=== PATIENT | male | born 1955 | race Caucasian/White ===

== ENCOUNTER 2020-07-17 21:12 | Inpatient (IN) | payer MEDICARE, MEDICAID ==
[~2020-07-17] VITALS: Ht 177.8 cm; Wt 94.2 kg
[2020-07-17] MEDS ORDERED: IOHEXOL 350 MG/ML 100ML IJ ONE (21:43)
[2020-07-17 22:10] LABS: Basophils # (auto) 0 10 ^3/uL (0-0.2); Basophils % (auto) 0.2 % (0.0-2.0); Eosinophils # (auto) 0 10 ^3/uL (0-0.8); Eosinophils % (auto) 0.4 % (0.0-7.0); Hematocrit 21.2 % (41.0-53.0); Hemoglobin 7.2 g/dL (13.5-17.5); Lymphocytes # (auto) 0.8 10 ^3/uL (0.4-5.4); Lymphocytes % (auto) 17.8 % (10.0-50.0); Mean Corpuscular Hemoglobin 31.2 pg (28.0-32.0); Mean Corpuscular Hgb Conc. 33.8 g/dL (32.0-36.0); Mean Corpuscular Volume 92.3 fL (80.0-100.0); Monocytes # (auto) 0.4 10 ^3/uL (0-1.3); Neutrophils # (auto) 3.4 10 ^3/uL (1.6-8.6); Neutrophils % (auto) 72.6 % (37.0-80.0); Platelet Count (auto) 46 10^3/uL (140-450); Red Blood Cells 2.29 10^6/uL (4.5-5.90); White Blood Cell 4.7 10^3/uL (4.4-10.8)
[2020-07-17 22:11] LABS: Red Cell Distribution Width 26.3 % (11.8-14.3)
[2020-07-17 22:28] LABS: INR 1.05 (0.9-1.15); Partial Thromboplastin Time 22.8 sec (23.0-31.2)
[2020-07-17 22:34] LABS: Alanine Aminotransferase 25 U/L (16-61); Albumin 2.9 g/dL (3.4-5.0); Amylase 75 U/L (25-115); Anion Gap 12 (5-15); Aspartate Aminotransferase 80 U/L (15-37); Blood Urea Nitrogen 22 mg/dL (7-18); Calcium 8.1 mg/dL (8.5-10.1); Carbon Dioxide 24 mmol/L (21-32); Chloride 96 mmol/L (98-107); GFR African American 91 mL/min; GFR Non-African American 75 mL/min; Glucose 164 mg/dL (74-106); Lipase 382 U/L (73-393); Magnesium 1.8 mg/dL (1.6-2.6); Potassium 3.9 mmol/L (3.5-5.1); Sodium 132 mmol/L (136-145)
[2020-07-17 22:39] LABS: Alkaline Phosphatase 306 U/L (45-117); Bilirubin, Total 0.8 mg/dL (0.2-1.0); Total Protein 6.2 g/dL (6.4-8.2)
[2020-07-17 23:03] LABS: Urine Bacteria NONE SEEN /hpf (None Seen); Urine Blood Negative /uL (Negative); Urine Specific Gravity 1.011 (1.001-1.035); Urine WBC <1 /hpf (0 - 3)
[2020-07-18] VITALS (18 sets, daily range): BP systolic 147–189; BP diastolic 65–92
[2020-07-18] MEDS ORDERED: ONDANSETRON HCL 4 MG/2 ML VIAL IV PRN (04:15)
[2020-07-18] MEDS ORDERED: HYDROcodone-ACET 10/325MG TAB PO PRN (04:15)
[2020-07-18] MEDS ORDERED: MORPHINE SULFATE 4 MG/ML SYR/VIAL IV PRN (04:15)
[2020-07-18] MEDS ORDERED: TEMAZEPAM 15 MG CAP PO PRN (04:15)
[2020-07-18] MEDS ORDERED: DEXA2TAB PO (08:12)
[2020-07-18] MEDS ORDERED: METO-159 PO (08:12)
[2020-07-18] MEDS: FAMOTIDINE 20 MG TAB PO SCH ×2 (10:59→22:00)
[2020-07-18] MEDS: METOPROLOL SUCCINATE XL 50 MG TAB PO SCH (11:00)
[2020-07-18 19:43] LABS: Hemoglobin 9.3 g/dL (13.5-17.5)
[2020-07-18 19:46] LABS: Hematocrit 27.1 % (41.0-53.0)
[2020-07-19 05:00] VITALS: BP 142/83
[2020-07-19 07:46] LABS: Hematocrit 25.6 % (41.0-53.0); Hemoglobin 8.8 g/dL (13.5-17.5); Mean Corpuscular Hemoglobin 31.5 pg (28.0-32.0); Mean Corpuscular Hgb Conc. 34.4 g/dL (32.0-36.0); Mean Corpuscular Volume 91.5 fL (80.0-100.0); Platelet Count (auto) 41 10^3/uL (140-450); Red Blood Cells 2.79 10^6/uL (4.5-5.90); Red Cell Distribution Width 21.5 % (11.8-14.3)
[2020-07-19 07:49] LABS: Basophils % (manual) 0 (0.0-2.0); Blast Cells 0; Eosinophils % (manual) 0 (0-7); Myelocytes % 0; Promyelocytes % 0; Reactive Lymphocytes 0
[2020-07-19 07:52] LABS: Albumin 2.8 g/dL (3.4-5.0); Calcium 8.1 mg/dL (8.5-10.1); Potassium 4.2 mmol/L (3.5-5.1)
[2020-07-19 07:57] LABS: BUN/Creatinine Ratio 25.3; Bilirubin, Total 0.8 mg/dL (0.2-1.0)
[2020-07-19] MEDS: FAMOTIDINE 20 MG TAB PO SCH (08:11)
[2020-07-19] MEDS: METOPROLOL SUCCINATE XL 50 MG TAB PO SCH (08:12)
[2020-07-19 09:00] VITALS: BP 164/90
[2020-07-19 12:00] VITALS: BP 128/82
[2020-07-19 12:09] LABS: Band Neutrophils % (manual) 15; Lymphocytes % (manual) 13 (10.0-50.0); Metamyelocytes % 2; Monocytes % (manual) 16 (0-12)
[2020-07-19 12:37] VITALS: BP 128/82
== END 2020-07-19 13:15 | disposition home or self-care (01) | DRG 722 ==
LOC: ER 21:12 → EDBD 21:12 → OVERFLOW 07-18 04:12 → WEST WING 07-18 07:56
PROVIDERS: ADMIT Nurse Practitioner; ATTEND Family Medicine
PROC: 30230N1 Transfusion of Nonautologous Red Blood Cells into Peripheral Vein, Open Approach (ICD-10-PCS; principal; 2020-07-18)
PROC: 30233R1 Transfusion of Nonautologous Platelets into Peripheral Vein, Percutaneous Approach (ICD-10-PCS; 2020-07-18)
DX: C61 Malignant neoplasm of prostate (principal); D61.810 Antineoplastic chemotherapy induced pancytopenia; C79.51 Secondary malignant neoplasm of bone; E44.0 Moderate protein-calorie malnutrition; D69.6 Thrombocytopenia, unspecified; Z20.822 Contact with and (suspected) exposure to COVID-19; I25.10 Atherosclerotic heart disease of native coronary artery without angina pectoris; I11.9 Hypertensive heart disease without heart failure; I71.2 Thoracic aortic aneurysm, without rupture; D63.8 Anemia in other chronic diseases classified elsewhere; K76.89 Other specified diseases of liver; R16.1 Splenomegaly, not elsewhere classified; N26.1 Atrophy of kidney (terminal); E83.51 Hypocalcemia; Z88.0 Allergy status to penicillin; Z68.29 Body mass index [BMI] 29.0-29.9, adult; Z92.21 Personal history of antineoplastic chemotherapy; Z79.899 Other long term (current) drug therapy; Z80.1 Family history of malignant neoplasm of trachea, bronchus and lung
CPT/HCPCS: 36415; 71260; 74177; 80053; 81001; 82150; 83605; 83690; 83735; 84484; 85007; 85014; 85018; 85025; 85027; 85610; 85730; 86850; 86900; 86901; 86920; 87426; 93005; 99291; G0378

== ENCOUNTER 2020-08-26 14:27 | Inpatient (IN) | payer MEDICARE, MEDICAID ==
[~2020-08-26] VITALS: Ht 180.3 cm; Wt 97.4 kg
[2020-08-26] VITALS (13 sets, daily range): BP systolic 115–153; BP diastolic 57–75
[~2020-08-26 14:27] MED LIST: DEXA2TAB PO; METO-159 PO
[2020-08-26] MEDS ORDERED: SODIUM CHLORIDE 0.9% 500 ML IV ONE (14:45)
[2020-08-26 14:59] LABS: Mean Corpuscular Hemoglobin 34.6 pg (28.0-32.0); Red Blood Cells 1.74 10^6/uL (4.5-5.90); White Blood Cell 8.6 10^3/uL (4.4-10.8)
[2020-08-26 15:01] LABS: Hematocrit 17.1 % (41.0-53.0); Mean Corpuscular Hgb Conc. 35.1 g/dL (32.0-36.0); Mean Corpuscular Volume 98.5 fL (80.0-100.0)
[2020-08-26 15:04] LABS: Red Cell Distribution Width 23.2 % (11.8-14.3)
[2020-08-26 15:09] LABS: Albumin 2.6 g/dL (3.4-5.0); BUN/Creatinine Ratio 20.4; Calcium 8.4 mg/dL (8.5-10.1); Potassium 4.1 mmol/L (3.5-5.1)
[2020-08-26 15:10] LABS: Basophils % (manual) 0 (0.0-2.0); Blast Cells 0; Myelocytes % 0; Promyelocytes % 0; Reactive Lymphocytes 0
[2020-08-26 15:12] LABS: Bilirubin, Total 1.4 mg/dL (0.2-1.0); Total Protein 6.1 g/dL (6.4-8.2)
[2020-08-26 16:57] LABS: Band Neutrophils % (manual) 12; Eosinophils % (manual) 1 (0-7); Lymphocytes % (manual) 27 (10.0-50.0); Metamyelocytes % 2; Monocytes % (manual) 9 (0-12)
[2020-08-26] MEDS ORDERED: ONDANSETRON HCL 4 MG/2 ML VIAL IV PRN (19:00)
[2020-08-26] MEDS ORDERED: MORPHINE SULFATE INJECTION 2 MG/ML SYRG IV PRN ×2 (19:00)
[2020-08-26] MEDS ORDERED: FUROSEMIDE 20 MG/2 ML VIAL IV ONE (19:00)
[2020-08-26] MEDS ORDERED: HYDROcodone-ACET 5/325MG TAB PO PRN ×2 (19:00→19:15)
[2020-08-26] MEDS ORDERED: NITROGLYCERIN 0.4 MG SL TAB SL PRN (19:00)
[2020-08-26] MEDS ORDERED: ACETAMINOPHEN 500 MG TAB PO PRN ×2 (19:00→19:15)
[2020-08-26] MEDS ORDERED: ABIR250T PO (19:06)
[2020-08-27] VITALS (7 sets, daily range): BP systolic 143–172; BP diastolic 73–81
[2020-08-27 08:10] LABS: Hematocrit 23.1 % (41.0-53.0); Hemoglobin 8.1 g/dL (13.5-17.5); Mean Corpuscular Hemoglobin 32.4 pg (28.0-32.0); Mean Corpuscular Hgb Conc. 35.2 g/dL (32.0-36.0); Mean Corpuscular Volume 92.1 fL (80.0-100.0); Red Blood Cells 2.51 10^6/uL (4.5-5.90); White Blood Cell 7.3 10^3/uL (4.4-10.8)
[2020-08-27 08:22] LABS: Red Cell Distribution Width 21.5 % (11.8-14.3)
[2020-08-27 08:24] LABS: Basophils % (manual) 0 (0.0-2.0); Blast Cells 0; Eosinophils % (manual) 0 (0-7); Promyelocytes % 0; Reactive Lymphocytes 0
[2020-08-27] MEDS ORDERED: hydrALAZINE HCL 20 MG/ML VL IV PRN (08:30)
[2020-08-27] MEDS ORDERED: ABIR250T2 PO (09:00)
[2020-08-27] MEDS: METOPROLOL SUCCINATE XL 50 MG TAB PO SCH ×2 (09:12→11:37)
[2020-08-27 09:49] LABS: Band Neutrophils % (manual) 23; Lymphocytes % (manual) 23 (10.0-50.0); Metamyelocytes % 2; Monocytes % (manual) 7 (0-12); Myelocytes % 9
[2020-08-27] MEDS ORDERED: ABIRATERONE ACETATE 1000 MG PO ONE (11:00)
[2020-08-27] MEDS ORDERED: ABIRATERONE ACETATE 1000 MG PO SCH ×2 (11:19→11:21)
[2020-08-27] MEDS: ABIRATERONE ACETATE 500 MG PO SCH (11:37)
[2020-08-27] MEDS ORDERED: DexAMETHasone 4 MG TAB PO ONE (11:45)
[2020-08-27] MEDS ORDERED: METOPROLOL TARTRATE 50 MG TAB PO ONE (11:45)
[2020-08-27] MEDS ORDERED: METOPROLOL SUCCINATE XL 50 MG TAB PO ONE (12:00)
[2020-08-28] MEDS ORDERED: ABIRATERONE ACETATE 1000 MG PO SCH (06:00)
[2020-08-28 06:02] LABS: Mean Corpuscular Volume 92.7 fL (80.0-100.0)
[2020-08-28 06:04] LABS: Hematocrit 21.2 % (41.0-53.0); Hemoglobin 7.6 g/dL (13.5-17.5); Mean Corpuscular Hgb Conc. 35.6 g/dL (32.0-36.0); Red Blood Cells 2.29 10^6/uL (4.5-5.90); White Blood Cell 6.4 10^3/uL (4.4-10.8)
[2020-08-28] MEDS: ABIRATERONE ACETATE 500 MG PO SCH (06:30)
[2020-08-28 06:31] LABS: Basophils % (manual) 0 (0.0-2.0); Blast Cells 0; Metamyelocytes % 0; Promyelocytes % 0; Reactive Lymphocytes 0; Red Cell Distribution Width 21.4 % (11.8-14.3)
[2020-08-28 08:10] LABS: Band Neutrophils % (manual) 18; Eosinophils % (manual) 3 (0-7); Lymphocytes % (manual) 33 (10.0-50.0); Monocytes % (manual) 5 (0-12); Myelocytes % 8
[2020-08-28 09:00] VITALS: BP 156/79
[2020-08-28] MEDS ORDERED: METOPROLOL SUCCINATE XL 50 MG TAB PO SCH (10:00)
[2020-08-28] MEDS ORDERED: DexAMETHasone 4 MG TAB PO SCH (10:00)
[2020-08-28 13:00] VITALS: BP 147/81
[2020-08-28 14:23] VITALS: BP 156/79
== END 2020-08-28 16:00 | disposition home or self-care (01) | DRG 812 ==
LOC: EDBD 14:27 → ER 14:27 → TELE 18:50 → TELE-CENTR 08-27 08:35
PROVIDERS: ADMIT Nurse Practitioner Acute Care; ATTEND Family Medicine
PROC: 30233N1 Transfusion of Nonautologous Red Blood Cells into Peripheral Vein, Percutaneous Approach (ICD-10-PCS; principal; 2020-08-26)
PROC: 30233R1 Transfusion of Nonautologous Platelets into Peripheral Vein, Percutaneous Approach (ICD-10-PCS; 2020-08-27)
DX: D64.81 Anemia due to antineoplastic chemotherapy (principal); C79.51 Secondary malignant neoplasm of bone; D69.6 Thrombocytopenia, unspecified; C61 Malignant neoplasm of prostate; I10 Essential (primary) hypertension; M54.9 Dorsalgia, unspecified; R53.81 Other malaise; Z20.822 Contact with and (suspected) exposure to COVID-19; Z79.899 Other long term (current) drug therapy; Z85.46 Personal history of malignant neoplasm of prostate; Z92.21 Personal history of antineoplastic chemotherapy; Z92.3 Personal history of irradiation; Z88.0 Allergy status to penicillin; Z80.9 Family history of malignant neoplasm, unspecified
CPT/HCPCS: 36415; 36430; 80053; 85007; 85027; 86850; 86900; 86901; 86920; 87426; 93005; 96374; G0378

== ENCOUNTER 2020-08-30 18:52 | Inpatient (IN) | payer MEDICARE, MEDICAID ==
[~2020-08-30] VITALS: Ht 172.7 cm; Wt 97.3 kg
[~2020-08-30 18:52] MED LIST changes: +ABIR250T2 PO
[2020-08-30 21:42] LABS: Hematocrit 21.9 % (41.0-53.0); Hemoglobin 7.6 g/dL (13.5-17.5); Mean Corpuscular Hgb Conc. 34.7 g/dL (32.0-36.0); White Blood Cell 8.1 10^3/uL (4.4-10.8)
[2020-08-30 21:43] LABS: Mean Corpuscular Hemoglobin 32.4 pg (28.0-32.0); Mean Corpuscular Volume 93.3 fL (80.0-100.0); Red Blood Cells 2.34 10^6/uL (4.5-5.90)
[2020-08-30 21:45] LABS: Red Cell Distribution Width 21.1 % (11.8-14.3)
[2020-08-30 21:47] LABS: Basophils % (manual) 0 (0.0-2.0); Blast Cells 0; Eosinophils % (manual) 0 (0-7); Metamyelocytes % 0; Promyelocytes % 0; Reactive Lymphocytes 0
[2020-08-30 22:00] LABS: Calcium 8.4 mg/dL (8.5-10.1); Potassium 4.2 mmol/L (3.5-5.1)
[2020-08-30 22:04] LABS: BUN/Creatinine Ratio 24.3; Bilirubin, Total 1.6 mg/dL (0.2-1.0); Total Protein 6.3 g/dL (6.4-8.2)
[2020-08-30 22:53] LABS: Band Neutrophils % (manual) 27; Lymphocytes % (manual) 23 (10.0-50.0); Monocytes % (manual) 6 (0-12); Myelocytes % 11
[2020-08-31] MEDS ORDERED: MORPHINE SULFATE 4 MG/ML SYR/VIAL IV PRN ×2 (02:30→03:45)
[2020-08-31] MEDS ORDERED: ONDANSETRON HCL 4 MG/2 ML VIAL IV PRN (03:45)
[2020-08-31] MEDS ORDERED: DEXTROSE (50%) 50ML SYRG IV PRN (03:45)
[2020-08-31] MEDS ORDERED: NITROGLYCERIN 0.4 MG SL TAB SL PRN (03:45)
[2020-08-31] MEDS ORDERED: HYDROcodone-ACET 5/325MG TAB PO PRN (03:45)
[2020-08-31] MEDS ORDERED: MORPHINE SULFATE INJECTION 2 MG/ML SYRG IV PRN (03:45)
[2020-08-31] MEDS ORDERED: DOCUSATE SOD 100 MG CAP PO PRN (03:45)
[2020-08-31] MEDS: SODIUM CHLORIDE 0.9% 1,000 ML IV SCH ×2 (05:07→20:25)
[2020-08-31 06:31] LABS: Urine Bacteria NONE SEEN /hpf (None Seen); Urine Blood Negative /uL (Negative); Urine Specific Gravity 1.015 (1.001-1.035); Urine WBC 1 /hpf (0 - 3)
[2020-08-31] MEDS: InsuLIN REG 1unit/0.01ml Soln (100units/ml) SC SCH ×2 (07:00→11:30)
[2020-08-31 07:06] LABS: Hematocrit 22.7 % (41.0-53.0); Mean Corpuscular Hgb Conc. 35.4 g/dL (32.0-36.0); Mean Corpuscular Volume 93.3 fL (80.0-100.0); Red Blood Cells 2.43 10^6/uL (4.5-5.90); Red Cell Distribution Width 21.8 % (11.8-14.3); White Blood Cell 6.8 10^3/uL (4.4-10.8)
[2020-08-31 07:08] LABS: Basophils % (manual) 0 (0.0-2.0); Blast Cells 0; Promyelocytes % 0; Reactive Lymphocytes 0
[2020-08-31 07:09] LABS: Calcium 8.1 mg/dL (8.5-10.1); Potassium 3.8 mmol/L (3.5-5.1)
[2020-08-31 07:11] LABS: Albumin 2.8 g/dL (3.4-5.0); BUN/Creatinine Ratio 25.8
[2020-08-31 07:21] LABS: Bilirubin, Total 1.5 mg/dL (0.2-1.0); Total Protein 6.2 g/dL (6.4-8.2)
[2020-08-31 07:24] LABS: INR 1.05 (0.9-1.15); Partial Thromboplastin Time 24.4 sec (23.0-31.2)
[2020-08-31] MEDS: ACCU-CHEK COMFORT CURVE STRIP VI SCH ×2 (07:27→11:41)
[2020-08-31 08:29] LABS: Band Neutrophils % (manual) 5; Eosinophils % (manual) 1 (0-7); Lymphocytes % (manual) 31 (10.0-50.0); Metamyelocytes % 1; Monocytes % (manual) 13 (0-12); Myelocytes % 2
[2020-08-31 08:37] VITALS: BP 170/71
[2020-08-31 08:52] VITALS: BP 146/75
[2020-08-31] MEDS: ZINC SULFATE 220mg CAP or TAB PO SCH (09:41)
[2020-08-31] MEDS: MULTIPLE VITAMIN TAB PO SCH (09:42)
[2020-08-31] MEDS: FAMOTIDINE 20 MG TAB PO SCH ×2 (09:42→20:35)
[2020-08-31] MEDS: ASCORBIC ACID 500 MG TAB PO SCH ×2 (09:42→20:35)
[2020-08-31] MEDS ORDERED: HEPARIN SODIUM (PORCINE) 5000 UNITS/ML 1ML VIAL SC SCH (10:00)
[2020-08-31 10:25] VITALS: BP 160/71
[2020-08-31] MEDS: ACETAMINOPHEN 325 MG TAB PO PRN (17:43)
[2020-08-31 17:53] VITALS: BP 132/73
[2020-08-31] MEDS ORDERED: METOPROLOL TARTRATE 50 MG TAB PO ONE (21:00)
[2020-08-31 22:00] VITALS: BP 124/98
[2020-08-31] MEDS ORDERED: InsuLIN REG 1unit/0.01ml Soln (100units/ml) SC SCH (22:00)
[2020-09-01 05:00] VITALS: BP 119/60
[2020-09-01 08:20] VITALS: BP 129/70
[2020-09-01 08:30] LABS: Hematocrit 20.8 % (41.0-53.0); Hemoglobin 7.2 g/dL (13.5-17.5); Red Blood Cells 2.25 10^6/uL (4.5-5.90)
[2020-09-01 08:32] LABS: Mean Corpuscular Hgb Conc. 34.7 g/dL (32.0-36.0); Mean Corpuscular Volume 92.3 fL (80.0-100.0); White Blood Cell 4.9 10^3/uL (4.4-10.8)
[2020-09-01 08:46] LABS: Red Cell Distribution Width 21.1 % (11.8-14.3)
[2020-09-01 08:47] LABS: Basophils % (manual) 0 (0.0-2.0); Blast Cells 0; Eosinophils % (manual) 0 (0-7); Metamyelocytes % 0; Promyelocytes % 0; Reactive Lymphocytes 0
[2020-09-01 08:55] LABS: Potassium 3.5 mmol/L (3.5-5.1)
[2020-09-01 09:00] VITALS: BP 129/70
[2020-09-01 09:02] LABS: Albumin 2.5 g/dL (3.4-5.0); BUN/Creatinine Ratio 28.1; Bilirubin, Total 1.9 mg/dL (0.2-1.0); Calcium 8.2 mg/dL (8.5-10.1)
[2020-09-01 09:17] LABS: Band Neutrophils % (manual) 15; Lymphocytes % (manual) 39 (10.0-50.0); Monocytes % (manual) 6 (0-12); Myelocytes % 1
[2020-09-01] MEDS: ZINC SULFATE 220mg CAP or TAB PO SCH (09:29)
[2020-09-01] MEDS: FAMOTIDINE 20 MG TAB PO SCH ×2 (09:30→20:53)
[2020-09-01] MEDS: MULTIPLE VITAMIN TAB PO SCH (09:30)
[2020-09-01] MEDS: ASCORBIC ACID 500 MG TAB PO SCH ×2 (09:31→20:53)
[2020-09-01] MEDS: METOPROLOL TARTRATE 50 MG TAB PO SCH (09:31)
[2020-09-01] MEDS ORDERED: DexAMETHasone 4 MG TAB PO ONE ×2 (11:45→16:00)
[2020-09-01] MEDS ORDERED: PATIENTS OWN MEDICATION PO SCH (11:45)
[2020-09-01] MEDS: SODIUM CHLORIDE 0.9% 1,000 ML IV SCH (12:42)
[2020-09-01 13:00] VITALS: BP 131/70
[2020-09-01] MEDS ORDERED: ABIRATERONE ACETATE 500 MG PO ONE (16:30)
[2020-09-01 17:00] VITALS: BP 137/63
[2020-09-01 22:00] VITALS: BP 149/67
[2020-09-02] VITALS (12 sets, daily range): BP systolic 114–161; BP diastolic 58–92
[2020-09-02] MEDS: SODIUM CHLORIDE 0.9% 1,000 ML IV SCH ×2 (05:56→22:25)
[2020-09-02 07:13] LABS: Hematocrit 16.8 % (41.0-53.0); Mean Corpuscular Volume 90.4 fL (80.0-100.0); Red Blood Cells 1.86 10^6/uL (4.5-5.90); White Blood Cell 3.7 10^3/uL (4.4-10.8)
[2020-09-02 07:15] LABS: Mean Corpuscular Hemoglobin 32.4 pg (28.0-32.0); Mean Corpuscular Hgb Conc. 35.8 g/dL (32.0-36.0)
[2020-09-02 07:17] LABS: Red Cell Distribution Width 20.4 % (11.8-14.3)
[2020-09-02 07:35] LABS: Basophils % (manual) 0 (0.0-2.0); Blast Cells 0; Promyelocytes % 0; Reactive Lymphocytes 0
[2020-09-02 07:46] LABS: Band Neutrophils % (manual) 16; Eosinophils % (manual) 1 (0-7); Lymphocytes % (manual) 26 (10.0-50.0); Metamyelocytes % 1; Monocytes % (manual) 8 (0-12); Myelocytes % 3
[2020-09-02] MEDS ORDERED: ABIRATERONE ACETATE 500 MG PO SCH (10:00)
[2020-09-02] MEDS: ZINC SULFATE 220mg CAP or TAB PO SCH (10:03)
[2020-09-02] MEDS: ASCORBIC ACID 500 MG TAB PO SCH ×2 (10:03→20:38)
[2020-09-02] MEDS: MULTIPLE VITAMIN TAB PO SCH (10:03)
[2020-09-02] MEDS: FAMOTIDINE 20 MG TAB PO SCH ×2 (10:04→20:38)
[2020-09-02] MEDS: METOPROLOL TARTRATE 50 MG TAB PO SCH (10:04)
[2020-09-02] MEDS: DexAMETHasone 4 MG TAB PO SCH (10:05)
[2020-09-03 00:15] VITALS: BP 154/77
[2020-09-03] MEDS: ACETAMINOPHEN 325 MG TAB PO PRN (02:21)
[2020-09-03 06:57] LABS: Hematocrit 21.6 % (41.0-53.0); Hemoglobin 7.7 g/dL (13.5-17.5); White Blood Cell 4.9 10^3/uL (4.4-10.8)
[2020-09-03 06:59] LABS: Mean Corpuscular Hemoglobin 31.7 pg (28.0-32.0); Mean Corpuscular Hgb Conc. 35.6 g/dL (32.0-36.0); Mean Corpuscular Volume 88.9 fL (80.0-100.0); Red Blood Cells 2.43 10^6/uL (4.5-5.90); Red Cell Distribution Width 18.4 % (11.8-14.3)
[2020-09-03 07:01] LABS: Basophils % (manual) 0 (0.0-2.0); Blast Cells 0; Eosinophils % (manual) 0 (0-7); Myelocytes % 0; Promyelocytes % 0; Reactive Lymphocytes 0
[2020-09-03 08:30] VITALS: BP 144/65
[2020-09-03 09:06] LABS: Band Neutrophils % (manual) 14; Lymphocytes % (manual) 30 (10.0-50.0); Metamyelocytes % 1; Monocytes % (manual) 9 (0-12)
[2020-09-03] MEDS: ZINC SULFATE 220mg CAP or TAB PO SCH (09:25)
[2020-09-03] MEDS: DexAMETHasone 4 MG TAB PO SCH (09:26)
[2020-09-03] MEDS: METOPROLOL TARTRATE 50 MG TAB PO SCH (09:27)
[2020-09-03] MEDS: FAMOTIDINE 20 MG TAB PO SCH (09:27)
[2020-09-03] MEDS: MULTIPLE VITAMIN TAB PO SCH (09:27)
[2020-09-03] MEDS: ASCORBIC ACID 500 MG TAB PO SCH (09:27)
[2020-09-03] MEDS ORDERED: ABIRATERONE ACETATE 500 MG PO SCH (10:00)
[2020-09-03 12:53] VITALS: BP 142/62
[2020-09-03 13:55] VITALS: BP 142/62
[2020-09-03] MEDS: SODIUM CHLORIDE 0.9% 1,000 ML IV SCH (15:05)
== END 2020-09-03 16:21 | DRG 563 ==
LOC: ER 18:52 → TELE 08-31 03:56 → TELE-CENTR 08-31 16:36
PROVIDERS: ADMIT Nurse Practitioner Family; ATTEND Family Medicine
PROC: 30233R1 Transfusion of Nonautologous Platelets into Peripheral Vein, Percutaneous Approach (ICD-10-PCS; principal; 2020-08-31)
PROC: 30233N1 Transfusion of Nonautologous Red Blood Cells into Peripheral Vein, Percutaneous Approach (ICD-10-PCS; 2020-09-02)
DX: S42.331A Displaced oblique fracture of shaft of humerus, right arm, initial encounter for closed fracture (principal); D61.818 Other pancytopenia; I10 Essential (primary) hypertension; Z20.822 Contact with and (suspected) exposure to COVID-19; W18.39XA Other fall on same level, initial encounter; Z88.0 Allergy status to penicillin; Z85.46 Personal history of malignant neoplasm of prostate; Z92.21 Personal history of antineoplastic chemotherapy; Z92.3 Personal history of irradiation; Y93.89 Activity, other specified; Y92.89 Other specified places as the place of occurrence of the external cause; Y99.8 Other external cause status
CPT/HCPCS: 36415; 73030; 73080; 80053; 81001; 82962; 83036; 85007; 85027; 85610; 85730; 86850; 86900; 86901; 86920; 87426; G0378; J2405

== ENCOUNTER 2020-09-04 17:15 | Inpatient (IN) | payer MEDICARE, MEDICAID ==
[~2020-09-04] VITALS: Ht 180.3 cm; Wt 93.9 kg
[2020-09-04 17:46] LABS: Hemoglobin 8.6 g/dL (13.5-17.5)
[2020-09-04 17:48] LABS: Hematocrit 25.4 % (41.0-53.0); Mean Corpuscular Hemoglobin 30.9 pg (28.0-32.0); Mean Corpuscular Hgb Conc. 33.9 g/dL (32.0-36.0); Mean Corpuscular Volume 91.3 fL (80.0-100.0); Red Blood Cells 2.78 10^6/uL (4.5-5.90); Red Cell Distribution Width 18.2 % (11.8-14.3); White Blood Cell 15.2 10^3/uL (4.4-10.8)
[2020-09-04 18:04] LABS: Albumin 2.5 g/dL (3.4-5.0); Calcium 8.8 mg/dL (8.5-10.1); Potassium 4.8 mmol/L (3.5-5.1)
[2020-09-04 18:07] LABS: BUN/Creatinine Ratio 25.2; Bilirubin, Total 1.2 mg/dL (0.2-1.0); Total Protein 6.4 g/dL (6.4-8.2)
[2020-09-04 18:17] LABS: Basophils % (manual) 0 (0.0-2.0); Blast Cells 0; Promyelocytes % 0; Reactive Lymphocytes 0
[2020-09-04 18:56] LABS: Band Neutrophils % (manual) 10; Eosinophils % (manual) 1 (0-7); Lymphocytes % (manual) 13 (10.0-50.0); Metamyelocytes % 4; Monocytes % (manual) 9 (0-12); Myelocytes % 7
[2020-09-04] MEDS ORDERED: cloNIDine HCL 0.1 MG TAB PO ONE (21:15)
[2020-09-04] MEDS ORDERED: HYDROcodone-ACET 5/325MG TAB PO ONE (21:15)
[2020-09-04] MEDS ORDERED: SODIUM CHLORIDE 0.9% 1,000 ML IV SCH (22:15)
[2020-09-04] MEDS ORDERED: MORPHINE SULFATE INJECTION 2 MG/ML SYRG IV PRN (22:15)
[2020-09-04] MEDS ORDERED: ACETAMINOPHEN 325 MG TAB PO PRN (22:15)
[2020-09-04] MEDS ORDERED: NITROGLYCERIN 0.4 MG SL TAB SL PRN (22:15)
[2020-09-04] MEDS ORDERED: ONDANSETRON HCL 4 MG/2 ML VIAL IV PRN (22:15)
[2020-09-04] MEDS ORDERED: DOCUSATE SOD 100 MG CAP PO PRN (22:15)
[2020-09-04] MEDS ORDERED: HYDROcodone-ACET 5/325MG TAB PO PRN (22:15)
[2020-09-04] MEDS ORDERED: hydrALAZINE HCL 20 MG/ML VL IV PRN (22:15)
[2020-09-05] VITALS (8 sets, daily range): BP systolic 147–164; BP diastolic 76–96
[2020-09-05] MEDS ORDERED: MORPHINE SULFATE INJECTION 2 MG/ML SYRG IV PRN (00:15)
[2020-09-05] MEDS ORDERED: NITROGLYCERIN 0.4 MG SL TAB SL PRN (00:15)
[2020-09-05] MEDS ORDERED: ONDANSETRON HCL 4 MG/2 ML VIAL IV PRN (00:15)
[2020-09-05] MEDS ORDERED: ACETAMINOPHEN 325 MG TAB PO PRN (00:15)
[2020-09-05] MEDS ORDERED: HYDROcodone-ACET 5/325MG TAB PO PRN (00:15)
[2020-09-05] MEDS ORDERED: SODIUM CHLORIDE 0.9% 1,000 ML IV SCH (00:15)
[2020-09-05] MEDS ORDERED: DOCUSATE SOD 100 MG CAP PO PRN (00:15)
[2020-09-05] MEDS: hydrALAZINE HCL 20 MG/ML VL IV PRN ×2 (00:30→12:57)
[2020-09-05] MEDS: amLODIPine BESYLATE 5 MG TAB PO SCH ×2 (05:56→09:49)
[2020-09-05] MEDS ORDERED: FAMOTIDINE 20 MG TAB PO SCH ×2 (10:00)
[2020-09-05] MEDS ORDERED: ZINC SULFATE 220mg CAP or TAB PO SCH ×2 (10:00)
[2020-09-05] MEDS ORDERED: MULTIPLE VITAMIN TAB PO SCH ×2 (10:00)
[2020-09-05] MEDS ORDERED: LISINOPRIL 20 MG TAB PO SCH (10:00)
[2020-09-05] MEDS ORDERED: METOPROLOL TARTRATE 25 MG TAB PO SCH ×2 (10:00)
[2020-09-05] MEDS ORDERED: ASCORBIC ACID 500 MG TAB PO SCH ×2 (10:00)
[2020-09-05 10:27] LABS: Hematocrit 25.1 % (41.0-53.0); Hemoglobin 8.8 g/dL (13.5-17.5); Mean Corpuscular Hemoglobin 31.3 pg (28.0-32.0); Mean Corpuscular Volume 89.5 fL (80.0-100.0); Red Cell Distribution Width 18.5 % (11.8-14.3); White Blood Cell 9.8 10^3/uL (4.4-10.8)
[2020-09-05 10:34] LABS: Basophils % (manual) 0 (0.0-2.0); Blast Cells 0; Eosinophils % (manual) 0 (0-7); Promyelocytes % 0; Reactive Lymphocytes 0
[2020-09-05 11:42] LABS: Band Neutrophils % (manual) 14; Lymphocytes % (manual) 17 (10.0-50.0); Metamyelocytes % 11; Monocytes % (manual) 6 (0-12); Myelocytes % 10
== END 2020-09-05 21:56 | DRG 723 ==
LOC: ER 17:15 → EDBD 17:15 → TELE-CENTR 22:26 → ER 23:15
PROVIDERS: ADMIT Nurse Practitioner Family; ATTEND Internal Medicine
PROC: 30233R1 Transfusion of Nonautologous Platelets into Peripheral Vein, Percutaneous Approach (ICD-10-PCS; principal; 2020-09-05)
DX: C61 Malignant neoplasm of prostate (principal); E87.1 Hypo-osmolality and hyponatremia; D61.818 Other pancytopenia; E88.09 Other disorders of plasma-protein metabolism, not elsewhere classified; S42.301D Unspecified fracture of shaft of humerus, right arm, subsequent encounter for fracture with routine healing; D72.829 Elevated white blood cell count, unspecified; D63.8 Anemia in other chronic diseases classified elsewhere; R73.9 Hyperglycemia, unspecified; I10 Essential (primary) hypertension; Z85.46 Personal history of malignant neoplasm of prostate; Z88.0 Allergy status to penicillin; X58.XXXD Exposure to other specified factors, subsequent encounter; Z20.822 Contact with and (suspected) exposure to COVID-19
CPT/HCPCS: 36415; 70450; 73030; 73130; 80053; 85007; 85027; 85049; 86850; 86900; 86901; 87040; 87426; 93971; 96360; G0378

== ENCOUNTER 2020-09-10 07:58 | Inpatient (IN) | payer MEDICARE, MEDICAID ==
[2020-09-10] VITALS (8 sets, daily range): BP systolic 150–187; BP diastolic 60–73
[~2020-09-10] VITALS: Ht 177.8 cm; Wt 100.6 kg
[2020-09-10] MEDS ORDERED: SODIUM CHLORIDE 0.9% 1,000 ML IV ONE (09:30)
[2020-09-10] MEDS ORDERED: METOCLOPRAMIDE HCL 5MG/ml INJ 2ml VIAL IV ONE (09:30)
[2020-09-10] MEDS ORDERED: MORPHINE SULFATE 4 MG/ML SYR/VIAL IV ONE (09:30)
[2020-09-10 10:00] LABS: Hematocrit 19.4 % (41.0-53.0); Mean Corpuscular Hemoglobin 32.1 pg (28.0-32.0); Mean Corpuscular Hgb Conc. 35.7 g/dL (32.0-36.0); Mean Corpuscular Volume 89.8 fL (80.0-100.0); Red Blood Cells 2.16 10^6/uL (4.5-5.90); Red Cell Distribution Width 19.2 % (11.8-14.3); White Blood Cell 13.6 10^3/uL (4.4-10.8)
[2020-09-10 10:07] LABS: Hemoglobin 6.9 g/dL (13.5-17.5)
[2020-09-10 10:09] LABS: Basophils % (manual) 0 (0.0-2.0); Blast Cells 0; Eosinophils % (manual) 0 (0-7); Reactive Lymphocytes 0
[2020-09-10 10:15] LABS: Albumin 2.1 g/dL (3.4-5.0); Calcium 8.3 mg/dL (8.5-10.1); Potassium 3.7 mmol/L (3.5-5.1)
[2020-09-10 10:19] LABS: BUN/Creatinine Ratio 30.2; Bilirubin, Total 1.1 mg/dL (0.2-1.0); Total Protein 5.8 g/dL (6.4-8.2)
[2020-09-10 10:27] LABS: Magnesium 1.9 mg/dL (1.6-2.6)
[2020-09-10 10:36] LABS: INR 1.09 (0.9-1.15); Partial Thromboplastin Time 22.9 sec (23.0-31.2)
[2020-09-10 11:37] LABS: Band Neutrophils % (manual) 4; Lymphocytes % (manual) 20 (10.0-50.0); Metamyelocytes % 7; Monocytes % (manual) 7 (0-12); Myelocytes % 1; Promyelocytes % 1
[2020-09-10 14:07] LABS: Urine WBC None Seen /hpf (0 - 3)
[2020-09-10 14:22] LABS: Urine Bacteria NONE SEEN /hpf (None Seen); Urine Blood Negative /uL (Negative); Urine Specific Gravity 1.008 (1.001-1.035)
[2020-09-10] MEDS ORDERED: MORPHINE SULF INJ 2 MG/ML SYRINGE 1ML IV PRN (15:00)
[2020-09-10] MEDS ORDERED: NITROGLYCERIN 0.4 MG SL TAB SL PRN (15:00)
[2020-09-10] MEDS ORDERED: SODIUM CHLORIDE 0.9% 1,000 ML IV SCH (15:00)
[2020-09-10 15:54] LABS: Folate (Folic Acid) 11.36 ng/mL (5.38-24)
[2020-09-10] MEDS: levoFLOXacin 500MG 100 ML IV ONE ×2 (15:57→18:57)
[2020-09-10] MEDS ORDERED: ACET-1156 PO (18:27)
[2020-09-10] MEDS: ACETAMINOPHEN 325 MG TAB PO PRN (22:09)
[2020-09-11] VITALS (8 sets, daily range): BP systolic 119–151; BP diastolic 64–83
[2020-09-11] MEDS: levoFLOXacin 500MG 100 ML IV SCH (09:57)
[2020-09-11] MEDS: METOPROLOL TARTRATE 50 MG TAB PO SCH (09:57)
[2020-09-11] MEDS ORDERED: ABIRATERONE ACETATE 1000 MG PO SCH (10:00)
[2020-09-11] MEDS ORDERED: ABIRATERONE ACETATE 250 MG PO SCH (10:00)
[2020-09-11] MEDS: ABIRATERONE ACETATE 500 MG PO SCH (10:53)
[2020-09-11 11:16] LABS: Hemoglobin 9.7 g/dL (13.5-17.5); Mean Corpuscular Hemoglobin 31.8 pg (28.0-32.0); Mean Corpuscular Hgb Conc. 36.1 g/dL (32.0-36.0); Mean Corpuscular Volume 88.1 fL (80.0-100.0); Red Blood Cells 3.04 10^6/uL (4.5-5.90); White Blood Cell 10.5 10^3/uL (4.4-10.8)
[2020-09-11 11:19] LABS: Hematocrit 26.7 % (41.0-53.0); Red Cell Distribution Width 17.3 % (11.8-14.3)
[2020-09-11 11:48] LABS: Basophils % (manual) 0 (0.0-2.0); Blast Cells 0; Eosinophils % (manual) 0 (0-7); Promyelocytes % 0; Reactive Lymphocytes 0
[2020-09-11] MEDS ORDERED: DexAMETHasone 4 MG TAB PO ONE (12:15)
[2020-09-11 13:01] LABS: Band Neutrophils % (manual) 10; Lymphocytes % (manual) 23 (10.0-50.0); Metamyelocytes % 3; Monocytes % (manual) 10 (0-12); Myelocytes % 1
[2020-09-12] VITALS (9 sets, daily range): BP systolic 133–169; BP diastolic 66–77
[2020-09-12 07:49] LABS: Hematocrit 25.5 % (41.0-53.0); Hemoglobin 9.1 g/dL (13.5-17.5); Mean Corpuscular Hemoglobin 31.6 pg (28.0-32.0); Mean Corpuscular Hgb Conc. 35.6 g/dL (32.0-36.0); Mean Corpuscular Volume 88.9 fL (80.0-100.0); Red Blood Cells 2.87 10^6/uL (4.5-5.90); Red Cell Distribution Width 17.8 % (11.8-14.3); White Blood Cell 7.6 10^3/uL (4.4-10.8)
[2020-09-12 07:51] LABS: Basophils % (manual) 0 (0.0-2.0); Blast Cells 0; Promyelocytes % 0; Reactive Lymphocytes 0
[2020-09-12 08:44] LABS: Band Neutrophils % (manual) 6; Eosinophils % (manual) 1 (0-7); Lymphocytes % (manual) 11 (10.0-50.0); Metamyelocytes % 2; Monocytes % (manual) 10 (0-12); Myelocytes % 2
[2020-09-12] MEDS ORDERED: DexAMETHasone 4 MG TAB PO SCH (10:00)
[2020-09-12] MEDS: levoFLOXacin 500MG 100 ML IV SCH (11:29)
[2020-09-12] MEDS: ABIRATERONE ACETATE 500 MG PO SCH (11:30)
[2020-09-12] MEDS: METOPROLOL TARTRATE 50 MG TAB PO SCH (11:31)
[2020-09-12] MEDS ORDERED: PANTOPRAZOLE 40 MG/10 ML VIAL INJ IV ONE (12:45)
[2020-09-12] MEDS: methylPREDNISolone SOD SUCC 40 MG/ML VL IV SCH ×2 (13:51→23:15)
[2020-09-12] MEDS: PANTOPRAZOLE 40 MG TAB PO SCH (23:14)
[2020-09-12] MEDS: ACETAMINOPHEN 325 MG TAB PO PRN (23:21)
[2020-09-13 05:00] VITALS: BP 159/83
[2020-09-13] MEDS: methylPREDNISolone SOD SUCC 40 MG/ML VL IV SCH ×3 (06:22→14:22)
[2020-09-13 07:13] LABS: Mean Corpuscular Volume 88.3 fL (80.0-100.0)
[2020-09-13 07:14] LABS: Hematocrit 23.9 % (41.0-53.0); Hemoglobin 8.4 g/dL (13.5-17.5); Mean Corpuscular Hgb Conc. 35.2 g/dL (32.0-36.0); Red Blood Cells 2.71 10^6/uL (4.5-5.90); White Blood Cell 9.3 10^3/uL (4.4-10.8)
[2020-09-13 07:17] LABS: Basophils % (manual) 0 (0.0-2.0); Blast Cells 0; Eosinophils % (manual) 0 (0-7); Promyelocytes % 0; Reactive Lymphocytes 0
[2020-09-13 07:36] LABS: Band Neutrophils % (manual) 12; Lymphocytes % (manual) 11 (10.0-50.0); Metamyelocytes % 5; Monocytes % (manual) 1 (0-12); Myelocytes % 9
[2020-09-13 08:00] VITALS: BP 165/84
[2020-09-13] MEDS: levoFLOXacin 500MG 100 ML IV SCH (09:33)
[2020-09-13] MEDS: METOPROLOL TARTRATE 50 MG TAB PO SCH (09:34)
[2020-09-13] MEDS: ABIRATERONE ACETATE 500 MG PO SCH (09:34)
[2020-09-13] MEDS: PANTOPRAZOLE 40 MG TAB PO SCH ×2 (09:34→22:06)
[2020-09-13] MEDS ORDERED: PANTOPRAZOLE 40 MG TAB PO SCH (10:00)
[2020-09-13 12:00] VITALS: BP 160/77
[2020-09-13] MEDS: ACETAMINOPHEN 325 MG TAB PO PRN (12:27)
[2020-09-13] MEDS: hydrALAZINE HCL 20 MG/ML VL IV PRN (12:49)
[2020-09-13] MEDS ORDERED: DexAMETHasone 4 MG TAB PO ONE (15:45)
[2020-09-13 16:00] VITALS: BP 165/76
[2020-09-13 22:00] VITALS: BP 155/77
[2020-09-14 05:00] VITALS: BP 169/85
[2020-09-14] MEDS: hydrALAZINE HCL 20 MG/ML VL IV PRN (05:45)
[2020-09-14 06:08] LABS: Hemoglobin 8.8 g/dL (13.5-17.5); Red Cell Distribution Width 17.9 % (11.8-14.3)
[2020-09-14 06:10] LABS: Hematocrit 25.3 % (41.0-53.0); Mean Corpuscular Hemoglobin 31.1 pg (28.0-32.0); Mean Corpuscular Hgb Conc. 34.9 g/dL (32.0-36.0); Red Blood Cells 2.84 10^6/uL (4.5-5.90); White Blood Cell 12.5 10^3/uL (4.4-10.8)
[2020-09-14 06:12] LABS: Basophils % (manual) 0 (0.0-2.0); Blast Cells 0; Eosinophils % (manual) 0 (0-7); Promyelocytes % 0; Reactive Lymphocytes 0
[2020-09-14 06:14] LABS: % Iron Saturation 95.1 % (20-55); Calcium 8.5 mg/dL (8.5-10.1); Potassium 4.5 mmol/L (3.5-5.1)
[2020-09-14 06:22] LABS: BUN/Creatinine Ratio 37.9; CRP High Sensitivity 4.16 mg/dL (< 0.3); Pre Albumin 14.1 mg/dL (20.0-40.0)
[2020-09-14 06:28] LABS: Thyroid Stimulating Hormone 3.06 uIU/mL (0.358-3.74)
[2020-09-14 06:30] LABS: Band Neutrophils % (manual) 9; Lymphocytes % (manual) 16 (10.0-50.0); Metamyelocytes % 5; Monocytes % (manual) 3 (0-12); Myelocytes % 2
[2020-09-14 08:00] VITALS: BP 162/92
[2020-09-14] MEDS: DexAMETHasone 4 MG TAB PO SCH (08:17)
[2020-09-14 09:40] LABS: Ferritin > 1650.0 ng/mL (10-322)
[2020-09-14] MEDS: levoFLOXacin 500MG 100 ML IV SCH (09:41)
[2020-09-14] MEDS: ABIRATERONE ACETATE 500 MG PO SCH (09:41)
[2020-09-14] MEDS: METOPROLOL TARTRATE 50 MG TAB PO SCH ×2 (09:42→20:57)
[2020-09-14] MEDS: PANTOPRAZOLE 40 MG TAB PO SCH ×2 (09:42→20:57)
[2020-09-14 12:00] VITALS: BP 142/79
[2020-09-14] MEDS: hydrALAZINE HCL 25 MG TAB PO SCH ×2 (14:09→20:57)
[2020-09-14 16:00] VITALS: BP 146/77
[2020-09-14 22:00] VITALS: BP 147/85
[2020-09-15 05:00] VITALS: BP 140/81
[2020-09-15 05:31] LABS: Hematocrit 25.2 % (41.0-53.0); Hemoglobin 8.8 g/dL (13.5-17.5); Mean Corpuscular Hemoglobin 30.9 pg (28.0-32.0); Mean Corpuscular Hgb Conc. 34.8 g/dL (32.0-36.0); Red Blood Cells 2.83 10^6/uL (4.5-5.90); Red Cell Distribution Width 17.5 % (11.8-14.3); White Blood Cell 11.6 10^3/uL (4.4-10.8)
[2020-09-15 05:44] LABS: Basophils % (manual) 0 (0.0-2.0); Blast Cells 0; Eosinophils % (manual) 0 (0-7); Reactive Lymphocytes 0
[2020-09-15] MEDS: hydrALAZINE HCL 25 MG TAB PO SCH ×3 (05:55→22:00)
[2020-09-15 06:47] LABS: Band Neutrophils % (manual) 7; Lymphocytes % (manual) 21 (10.0-50.0); Metamyelocytes % 7; Monocytes % (manual) 6 (0-12); Myelocytes % 7; Promyelocytes % 1
[2020-09-15 08:00] VITALS: BP 149/79
[2020-09-15] MEDS: DexAMETHasone 4 MG TAB PO SCH (08:14)
[2020-09-15] MEDS: ABIRATERONE ACETATE 500 MG PO SCH (09:34)
[2020-09-15] MEDS: METOPROLOL TARTRATE 50 MG TAB PO SCH ×2 (09:34→22:00)
[2020-09-15] MEDS: levoFLOXacin 500MG 100 ML IV SCH (09:34)
[2020-09-15] MEDS: PANTOPRAZOLE 40 MG TAB PO SCH ×2 (09:34→22:10)
[2020-09-15] MEDS: ACETAMINOPHEN 325 MG TAB PO PRN ×3 (10:50→20:19)
[2020-09-15 12:00] VITALS: BP 144/95
[2020-09-15 12:57] LABS: Free T4 (Free Thyroxine) 0.62 ng/dL (0.89-1.76)
[2020-09-15 12:58] LABS: Folate (Folic Acid) 8.81 ng/mL (5.38-24)
[2020-09-15 16:00] VITALS: BP 157/75
[2020-09-15] MEDS: hydrALAZINE HCL 20 MG/ML VL IV PRN (17:05)
[2020-09-15 22:00] VITALS: BP 139/45
[2020-09-16] MEDS: ACETAMINOPHEN 325 MG TAB PO PRN (02:10)
[2020-09-16] MEDS ORDERED: EPINEPHrine HCL 1 MG/10 ML SYRG IV ONE (03:39)
== END 2020-09-16 03:40 | DRG 808 ==
LOC: ER 07:58 → EDBD 07:58 → TELE 15:00 → TELE-WESTW 17:29
PROVIDERS: ADMIT Nurse Practitioner Acute Care; ATTEND Internal Medicine
PROC: 30233N1 Transfusion of Nonautologous Red Blood Cells into Peripheral Vein, Percutaneous Approach (ICD-10-PCS; 2020-09-10)
PROC: 05HF33Z Insertion of Infusion Device into Left Cephalic Vein, Percutaneous Approach (ICD-10-PCS; 2020-09-10)
PROC: B54NZZA Ultrasonography of Left Upper Extremity Veins, Guidance (ICD-10-PCS; 2020-09-10)
PROC: 30233R1 Transfusion of Nonautologous Platelets into Peripheral Vein, Percutaneous Approach (ICD-10-PCS; principal; 2020-09-12)
DX: D61.810 Antineoplastic chemotherapy induced pancytopenia (principal); E43 Unspecified severe protein-calorie malnutrition; K92.2 Gastrointestinal hemorrhage, unspecified; C79.51 Secondary malignant neoplasm of bone; Z66 Do not resuscitate; C61 Malignant neoplasm of prostate; I10 Essential (primary) hypertension; D63.8 Anemia in other chronic diseases classified elsewhere; Z20.822 Contact with and (suspected) exposure to COVID-19; T45.1X5A Adverse effect of antineoplastic and immunosuppressive drugs, initial encounter; E11.9 Type 2 diabetes mellitus without complications; Z88.0 Allergy status to penicillin; Z92.3 Personal history of irradiation
CPT/HCPCS: 36415; 71045; 73060; 74176; 80048; 80053; 81001; 82040; 82270; 82565; 82607; 82668; 82728; 82746; 82962; 83010; 83540; 83550; 83615; 83690; 83735; 84425; 84439; 84443; 85007; 85027; 85049; 85610; 85652; 85730; 86141; 86225; 86235; 86850; 86880; 86900; 86901; 86920; 87040; 87081; 87426; 93005; 93971; 96361; 96365; 97110; 97116; 97530; C9113; G0378; J1956